=== PATIENT | female | born 1990 | race Caucasian/White ===

== ENCOUNTER 2017-05-24 10:05 | Emergency (ER) | payer MEDICAID ==
[~2017-05-24] VITALS: Ht 160 cm; Wt 113.0 kg
[2017-05-24 10:12] VITALS: BP 143/67; PULSE 129; RESP 16; TEMP 99.2; O2SAT 96
[2017-05-24] MEDS ORDERED: KETOROLAC TROMETHAMINE 30 MG/ML (IVP) VIAL IV PUSH ONE (11:00)
[2017-05-24] MEDS ORDERED: SODIUM CHLOR 0.9% 1000 ML INJ 1,000 ML IV ONE (11:00)
[2017-05-24] MEDS ORDERED: ONDANSETRON HCL 4 MG/2 ML VIAL IV PUSH ONE (11:00)
[2017-05-24] MEDS ORDERED: FAMOTIDINE 20 MG TAB PO ONE (11:00)
[2017-05-24 11:09] LABS: BLOOD, URINE NEG (NEG); GLUCOSE,URINE NEG (NEG); KETONE, URINE TRACE mg/dL (NEG); NITRITE,URINE NEG (NEG); URINE LEUKOCYTE ESTERASE NEG (NEG)
[2017-05-24 11:10] LABS: HEMATOCRIT 35.5 % (35.0-46.0); HEMOGLOBIN 11.6 GM/DL (11.6-15.3); MEAN CORPUSCULAR HEMOGLOBIN 30.4 PG (27.0-34.0); MEAN CORPUSCULAR HGB CONC 32.7 % (32.0-36.0); MEAN PLATELET VOLUME 8.8 FL (7.0-11.0); PLATELET COUNT 217 TH/MM3 (150-450); RED BLOOD COUNT 3.82 MIL/MM3 (4.00-5.30); RED CELL DISTRIBUTION WIDTH 15.1 % (11.6-17.2); WHITE BLOOD COUNT 6.3 TH/MM3 (4.0-11.0)
[2017-05-24 11:18] LABS: CHLORIDE 106 MEQ/L (98-107); SODIUM (NA) 140 MEQ/L (136-145)
[2017-05-24 11:19] LABS: BILIRUBIN, URINE NEG (NEG)
[2017-05-24 11:21] LABS: ALBUMIN 3.4 GM/DL (3.4-5.0); BICARBONATE 27.1 MEQ/L (21.0-32.0); CALCIUM 8.2 MG/DL (8.5-10.1)
[2017-05-24 11:22] LABS: BLOOD UREA NITROGEN 9 MG/DL (7-18); GLUCOSE,RANDOM 115 MG/DL (74-106)
[2017-05-24 11:24] LABS: ALT (GPT) 80 U/L (10-53)
[2017-05-24 11:25] LABS: AST (GOT) 97 U/L (15-37); CREATININE 0.74 MG/DL (0.50-1.00); GLOMERULAR FILTRATION RATE 93 ML/MIN (>89)
[2017-05-24 11:26] LABS: TOTAL BILIRUBIN ADULT 0.7 MG/DL (0.2-1.0); TOTAL PROTEIN 7.7 GM/DL (6.4-8.2)
[2017-05-24 11:27] LABS: ALKALINE PHOSPHATASE 82 U/L (45-117)
[2017-05-24 11:27] LABS: HYALINE CAST, URINE 0-2 /lpf (RARE); URINE COLOR AMBER (YELLW/STRAW)
[2017-05-24 11:28] LABS: RBC, URINE 0-3 /hpf (0-3); SQUAMOUS EPITHELIAL CELL URINE 0-5 /hpf (0-5)
[2017-05-24 11:39] LABS: LYMPHOCYTES 62 % (9-44); MONOCYTES 7 % (0-8); NEUTROPHIL # MANUAL DIFF 1.9 TH/MM3 (1.8-7.7); POLYS (SEG NEUTROPHILS) 30 % (16-70)
--- NOTE | 2017-05-24 11:46 | RADRPT ---
EXAM DATE/TIME: 05/24/2017 11:23 [place] COMPARISON: No previous studies available for comparison. INDICATIONS : Cough & congestion x 1 month. MEDICAL HISTORY : None. SURGICAL HISTORY : Tonsillectomy. Tubal ligation. Left foot. ENCOUNTER: Initial ACUITY: 1 month PAIN SCORE: 0/10 LOCATION: chest FINDINGS: PA and lateral views of the chest demonstrate the lungs to be symmetrically aerated without evidence of mass, infiltrate or effusion. The cardiomediastinal contours are unremarkable. Osseous structure s are intact with mild scoliosis. CONCLUSION: No acute disease. Zack Garza MD on May 24, 2017 at 11:44 Board Certified Radiologist. This report was verified electronically.
[2017-05-24] MEDS ORDERED: ZANT150T2 PO (11:55)
--- NOTE | 2017-05-24 11:55 | PD ---
HPI Chief Complaint: GI Complaint Time Seen by Provider: 10:49 Travel History International Travel<30 days: No Contact w/Intl Traveler<30days: No Traveled to known affect area: No History of Present Illness HPI Patient is a 27-year-old female who comes in complaining of a month of symptoms. She says she has had cough, nasal congestion, nausea, vomiting. She says she does feel some reflux symptoms. She says she mostly vomits in the morning, but occasionally at night. She denies any abdominal pain. She has not had any fever or chills, but says sometimes she has some night sweats. She has not seen a doctor for this. She tried taking some [id number] cold medications without any relief. She denies any shortness of breath or chest pain. She says nothing seems to make her symptoms better. [facility] Past Medical History Respiratory: Yes (asthma) Tetanus Vaccination: Unknown Influenza Vaccination: No ?: Not LMP: 04/01/17 Tubal Ligation: Yes Past Surgical History Tonsillectomy: Yes Other Surgery: Yes (left foot and 4th digit r/t injury) Social History Alcohol Use: Yes (occas wine) Tobacco Use: No Substance Use: No Allergies-Medications (Allergen,Severity, Reaction): Coded Allergies: No Known Allergies (Unverified , 05/24/17) Reported Meds & Prescriptions Reported Meds & Active Scripts Active No Active Prescriptions or Reported Medications Review of Systems Except as stated in HPI: all other systems reviewed are Neg General / Constitutional: No: Fever, Chills HENT: Positive: Congestion, No: Headaches, Lightheadedness Cardiovascular: No: Chest Pain or Discomfort Respiratory: Positive: Cough, No: Shortness of Breath Gastrointestinal: Positive: Nausea, Vomiting, No: Abdominal Pain Genitourinary: No: Dysuria Musculoskeletal: No: Myalgias, Edema Skin: No Rash, No Change in Pigmentation Neurologic: No: Weakness, Dizziness Physical Exam Narrative GENERAL: Awake and alert, in no acute distress. SKIN: Focused skin assessment warm/dry. No wounds. HEAD: Atraumatic. Normocephalic. EYES: Pupils equal and round. No scleral icterus. ENT: Mucous membranes pink and moist. NECK: Trachea midline. No JVD. CARDIOVASCULAR: Regular rate and rhythm. No murmur appreciated. RESPIRATORY: No accessory muscle use. Clear to auscultation. Breath sounds equal bilaterally. GASTROINTESTINAL: Abdomen soft, non-tender, nondistended. MUSCULOSKELETAL: No obvious deformities. No clubbing. No cyanosis. No edema. NEUROLOGICAL: Awake and alert. No obvious cranial nerve deficits. Motor grossly within normal limits. Normal speech. PSYCHIATRIC: Appropriate mood and affect; insight and judgment normal. Data Data Last Documented VS Vital Signs Date Time Temp Pulse Resp B/P (MAP) Pulse Ox O2 Delivery O2 Flow Rate FiO2 05/24/17 10:19 16 05/24/17 10:12 99.2 129 143/67 (92) 96 Orders Orders Urinalysis - C+S If Indicated (05/24/17 10:21) Ed Urine Pregnancytest Poc (05/24/17 10:25) Iv Access Insert/Monitor (05/24/17 10:56) Complete Blood Count With Diff (05/24/17 10:56) Comprehensive Metabolic Panel (05/24/17 10:56) Influenzae A/B Antigen (05/24/17 10:56) Chest, Pa & Lat (05/24/17 ) Sodium Chlor 0.9% 1000 Ml Inj (Ns 1000 M (05/24/17 11:00) Ondansetron Inj (Zofran Inj) (05/24/17 11:00) Ketorolac Inj (Toradol Inj) (05/24/17 11:00) Famotidine (Pepcid) (05/24/17 11:00) Labs Laboratory Tests Test 05/24/17 10:50 05/24/17 11:00 Urine Color DONI Urine Turbidity CLEAR Urine pH 6.0 Urine Specific [place] 1.026 Urine Protein TRACE mg/dL Urine Glucose (UA) NEG mg/dL Urine Ketones TRACE mg/dL Urine Occult Blood NEG Urine Nitrite NEG Urine Bilirubin NEG Urine Leukocyte Esterase NEG Urine RBC 0-3 /hpf Urine WBC 3-5 /hpf Urine Squamous Epithelial Cells 0-5 /hpf Urine Hyaline Casts 0-2 /lpf Microscopic Urinalysis Comment CULT NOT INDICATED White Blood Count 6.3 TH/MM3 Red Blood Count 3.82 MIL/MM3 Hemoglobin 11.6 GM/DL Hematocrit 35.5 % Mean Corpuscular Volume 93.0 FL Mean Corpuscular Hemoglobin 30.4 PG Mean Corpuscular Hemoglobin Concent 32.7 % Red Cell Distribution Width 15.1 % Platelet Count 217 TH/MM3 Mean Platelet Volume 8.8 FL CBC Comment AUTO DIFF Differential Total Cells Counted 100 Neutrophils % (Manual) 30 % Lymphocytes % 62 % Monocytes % 7 % Eosinophils % 1 % Neutrophils # (Manual) 1.9 TH/MM3 Differential Comment FINAL DIFF MANUAL Platelet Estimate NORMAL Platelet Morphology Comment NORMAL Red Cell Morphology Comment NORMAL Blood Urea Nitrogen 9 MG/DL Creatinine 0.74 MG/DL Random Glucose 115 MG/DL Total Protein 7.7 GM/DL Albumin 3.4 GM/DL Calcium Level 8.2 MG/DL Alkaline Phosphatase 82 U/L Aspartate Amino Transf (AST/SGOT) 97 U/L Alanine Aminotransferase (ALT/SGPT) 80 U/L Total Bilirubin 0.7 MG/DL Sodium Level 140 MEQ/L Potassium Level 3.4 MEQ/L Chloride Level 106 MEQ/L Carbon Dioxide Level 27.1 MEQ/L Anion Gap 7 MEQ/L Estimat Glomerular Filtration Rate 93 ML/MIN [facility] Medical Decision Making Medical Screen Exam Complete: Yes Emergency Medical Condition: Yes Medical Record Reviewed: Yes Differential Diagnosis Influenza versus GERD versus seasonal allergies Narrative Course Patient is a 27-year-old female who comes in with multiple complaints of been going on for the past month. Exam shows no acute abnormalities. IV established , labs sent. Labs show slight elevation in AST and ALTs. Patient advised of this, advised follow-up with a primary doctor and avoid Tylenol and alcohol use. She was given a dose of Toradol as well as famotidine, Zofran and IV fluids. Discharged home with prescription for famotidine. Advised to try over-the- counter allergy medications. Advised follow-up with a primary doctor. Advised to return to the ED as needed for any worsening symptoms. Diagnosis Primary Impression: GERD (gastroesophageal reflux disease) Qualified Codes: K21.9 - Gastro-esophageal reflux disease without esophagitis Additional Impression: Environmental allergies Referrals: [facility] call for appointment Patient Instructions: Allergies (ED), Gastroesophageal Reflux Disease (ED), General Instructions Additional Instructions: Takes Zantac daily. Try [id number] allergy medications. Follow-up with a primary care doctor. Her liver enzymes were elevated today, avoid alcohol and Tylenol use. You need to have these repeated in the next few weeks. ED as needed for any worsening symptoms. Scripts Ranitidine (Zantac) 150 Mg Tab 150 MG PO BID for Reduce Stomach Acid, #60 TAB 0 Refills Prov: Evelyn Valente MD 05/24/17 Disposition: 01 DISCHARGE HOME Condition: Stable Evelyn Valente MD May 24, 2017 11:55
[2017-05-24 12:13] VITALS: BP 137/70
== END 2017-05-24 12:15 | disposition home or self-care (01) ==
LOC: PHED 10:05
DX: K21.9 Gastro-esophageal reflux disease without esophagitis (principal); R11.2 Nausea with vomiting, unspecified; J45.909 Unspecified asthma, uncomplicated
CPT/HCPCS: 71020; 80053; 81001; 84703; 85007; 85027; 87804; 96361; 96374; 96375; 99284; J1885; J2405; J7030